=== PATIENT | female | born 1995 | race Caucasian/White ===

== ENCOUNTER 2024-02-11 16:22 | Emergency (ER) | payer OTHER, SELFPAY ==
[2024-02-11 16:29] VITALS: BP 117/72; PULSE 83; RESP 19; TEMP 36.8; O2SAT 100
--- NOTE | 2024-02-11 16:30 | ED.DENTAL ---
HPI - Dental/Oral General Chief complaint: Dental/Oral Stated complaint: Dental Pain Time Seen by Provider: 02/11/24 16:30 Source: patient, RN notes reviewed and old records reviewed Mode of arrival: ambulatory Limitations: no limitations History of Present Illness HPI Narrative: Patient presents with complaints of left lower dental pain that began yesterday. She denies any recent injury or trauma. She does admit to poor dentition. Has dental appointment for March, is unable to get any sooner appointment. She denies any fever, chills, sweats. She has been taking multiple [id number] preparations for her tooth pain with no relief. She has no associated facial swelling, denies fever, chills, sweats. She reports that eating makes the pain worse. [id number] remedies have made the pain slightly better Related Data Allergies Allergy/AdvReac Type Severity Reaction Status Date / Time No Known Allergies Allergy Verified 02/11/24 16:38 Review of Systems Review of Systems: All systems reviewed & are unremarkable except as noted in HPI and below Constitutional: Constitutional: Reports no additional constitutional complaints ENT: Reports system reviewed and no additional complaints, except as documented, Reports as per HPI, Reports dental pain, Denies lip swelling and Reports mouth pain Cardiovascular: Cardiovascular: Reports no additional cardiovascular complaints Respiratory: Respiratory: Reports no additional respiratory complaints Gastrointestinal: Gastrointestinal: Reports no additional gastrointestinal complaints PMFSH Comments At the time of my signature, I reviewed and agree with the nursing past medical, surgical, social, and family history. There is no relevant family history pertinent to the patient complaint. Exam Const: General: cooperative, no acute distress, alert and awake Orientation/consciousness: oriented to person, oriented to place and oriented to time HENMT: Head: normal to inspection Ears: TM's normal bilaterally Teeth and gingiva: abnormal tooth and associated gingiva (left lower molar. No active drainage, significant gingival swelling) and poor dentition Resp: Effort & Inspection: normal respiratory effort and able to speak in complete sentences Auscultation: clear to auscultation bilaterally, no crackles, no rales, no rhonchi and no wheezes Cardio: Palpation: normal PMI Rate: regular rate Rhythm: regular rhythm Heart sounds: S1 normal heart sound present and S2 normal heart sound present Neuro: General: oriented to person, oriented to place and oriented to time Cranial nerves: Yes CN's II-XII intact bilaterally Psych: Appearance: grossly normal Thought process: Normal thought process present Insight: Good insight present (Psych) Judgement: Good judgement present (Psych) Course Course Level of Care: Express Care Visit Vital Signs Vital signs: Reviewed MDM - Dental/Oral MDM Narrative Medical decision making narrative: Patient with overall poor dentition, worse is at left lower molar. There is associated gingival swelling, small abscess formation. No associated facial or neck swelling. Afebrile. Start clindamycin. Follow-up with primary care provider and dentist. Emergency department for new or worse symptoms. Continue with [id number] preparations for pain, follow package instructions. Discharge instructions reviewed with patient, as well as provided in writing per nursing staff. The instructions also include specific and strict return/GO TO THE ER as well as f/u information. All questions have been answered, and the patient deny any further questions with discharge and discharge plan. Some parts of this dictation were generated by voice recognition software and may contain typographical and/or grammatical inaccuracies. Differential Diagnosis Differential diagnosis: Likely gingival abscess, dental caries, toothache and dental abscess Medical Records Attestati
== END 2024-02-11 16:45 | disposition home or self-care (01) ==
PROVIDERS: Emergency Provider Nurse Practitioner Family
DX: K04.7 Periapical abscess without sinus (principal)
CPT/HCPCS: 99213; G0463